=== PATIENT | female | born 1960 | race Caucasian/White ===

== ENCOUNTER 2017-06-24 18:00 | Emergency (ER) | payer OTHER ==
[~2017-06-24] VITALS: Ht 167.6 cm; Wt 99.4 kg
[~2017-06-24 18:00] MED LIST: ADVAIR 250/501 DISK IH; ALEVE220 MG PO; ASPIR-LOW81 MG PO; ATORVASTATIN CA80 MG PO; AUGMENTIN875 MG PO; Aspirin E.C. PO; CEFTIN500 MG PO; CLOPIDOGREL75 MG PO; COUMADIN3 MG PO; CYANOCOBALAM1000 MCG PO; DELTASONE20 M1 PO; DILANTIN100 MG PO; DUONEB 2.5-0.5 M3 ML IH; Dilantin PO; FLOVENT DISKUS1 DISK IH; GLIPIZIDE5 MG PO; GLUCOTROL XL5 MG PO; GLUCOTROL5 MG PO; Glucotrol PO; Habitrol,Nicoderm CQ TD; JANUVIA100 MG PO; KEFLEX500 MG PO; KEPPRA250 MG PO; KEPPRA500 MG PO; LACTINEX PACKE1 EACH PO; LEVAQUIN750 MG PO; LIDODERM 5% P1 PATCH TD; LOPRESSOR25 MG PO; LOVENOX100 MG/1 M SC; Levaquin PO; NICOTINE PATCH1 EAC1 TD; NORCO 5/3251 TABLET PO; NOVOLOG PE100 UNITS/ SC; PANTOPRAZOLE SO40 MG PO; PATADAY2.5 ML BOTH EYES; PERCOCET 5/31 TABLET PO; PHENOBARBITAL60 MG PO; PHENOBARBITAL64.8 MG PO; PHENYTOIN SODI100 M1 PO; PHENobarbital PO; PLAVIX75 MG PO; PRAVASTATIN SOD40 MG PO; PREDNISONE10 MG PO; PROVENTIL,2.5 MG/3 M IH; ROXICODONE5 MG PO; Roxicet,Percocet 5/3 PO; SPIRIVA1 INHALATI IH; VENTOLIN HFA18 GM IH; VIMPAT100 MG PO; ZESTORETIC 10-1 EAC1 PO; [UNRECOGNIZED DRUG - OTHER] IH; predniSONE PO
[2017-06-24 21:02] VITALS: BP 122/76
== END 2017-06-24 21:12 | disposition home or self-care (01) ==
LOC: EME 18:00
DX: S99.922A Unspecified injury of left foot, initial encounter (principal); M79.672 Pain in left foot; W18.40XA Slipping, tripping and stumbling without falling, unspecified, initial encounter; M85.80 Other specified disorders of bone density and structure, unspecified site; J44.9 Chronic obstructive pulmonary disease, unspecified; K21.9 Gastro-esophageal reflux disease without esophagitis; I10 Essential (primary) hypertension; E11.9 Type 2 diabetes mellitus without complications; R56.9 Unspecified convulsions; F32.9 Major depressive disorder, single episode, unspecified; Z87.891 Personal history of nicotine dependence; Z86.73 Personal history of transient ischemic attack (TIA), and cerebral infarction without residual deficits; Z79.84 Long term (current) use of oral hypoglycemic drugs; Z88.6 Allergy status to analgesic agent
CPT/HCPCS: 73630; 99281; 99284

== ENCOUNTER 2017-08-25 23:12 | Inpatient (IN) | payer OTHER ==
[~2017-08-25] VITALS: Ht 165.1 cm; Wt 94.4 kg
[~2017-08-25 23:12] MED LIST changes: -JANUVIA100 MG PO; -PHENYTOIN SODI100 M1 PO; -PLAVIX75 MG PO
[2017-08-25 23:42] LABS: BASOPHIL (%) 0.3 % (0-1); BASOPHIL COUNT 0.1 K/uL (0-0.1); EOSINOPHIL (%) 0 % (0-5); HEMATOCRIT 44.1 % (36.0-46.0); HEMOGLOBIN 14.4 G/DL (11.9-15.5); IMMATURE GRANULOCYTE (%) 0.5 % (0.0-0.7); LYMPHOCYTE (%) 6.7 % (15-42); LYMPHOCYTE COUNT 1.4 K/uL (1.0-2.8); MCH 29.7 PG (29.0-34.0); MCHC 32.7 G/DL (30.0-36.0); MCV 90.9 FL (83-99); MONOCYTE (%) 3.1 % (3-12); MONOCYTE COUNT 0.7 K/uL (0-0.8); NEUTROPHIL (%) 89.4 % (45-76); PLATELET COUNT 382 K/uL (156-360); RBC DIS.WIDTH-CV 13.1 % (11.8-14.6); RBC DIS.WIDTH-SD 43.2 % (39-53); RED BLOOD COUNT 4.85 M/uL (3.80-5.20); WHITE BLOOD COUNT 21.2 K/uL (4.1-10.2)
[2017-08-25 23:50] LABS: AMYLASE 41 IU/L (1-118); CHLORIDE 97 mEq/L (99-109); SODIUM 137 mEq/L (136-147)
[2017-08-25 23:52] LABS: GLUCOSE 247 mg/dL (70-99)
[2017-08-25 23:55] LABS: SERUM ETHYL ALCOHOL < 10 mg/dL
[2017-08-25 23:56] LABS: CREATININE 0.7 mg/dL (0.6-1.3); GFR ESTIMATE (CALCULATED) > 59 mL/min/
[2017-08-25 23:57] LABS: UREA NITROGEN (BUN) 9 mg/dL (9-23)
[2017-08-25 23:59] LABS: INTER. NORMALIZED RATIO 1.1; LIPASE 20 U/L (1.0-51.0)
[2017-08-26] VITALS (27 sets, daily range): BP systolic 125–164; BP diastolic 52–91
[2017-08-26 00:01] LABS: PTT 26.7 SEC (25-37)
[2017-08-26 00:04] LABS: TROP-I INTERPRETATION NEGATIVE; TROPONIN-I < 0.01 ng/mL (0.0-0.30)
[2017-08-26 00:04] LABS: BASE EXCESS 1.6 mEq/L (-3 to +3); BICARBONATE 30.1 mEq/L (22-26); CARBOXY HGB 1.1 % (0-5); METHEMOGLOBIN 1.5 % (0-1.5); PO2 331 mm Hg (80-100)
[2017-08-26 00:05] LABS: COMMENTS - BLOOD GASES C+; DEVICE VENT; FI02 100 %; MECHANICAL RATE 14 resp/min; MODE AC; PCO2 64 mm Hg (35-45); PEEP 5 CM/H20; SITE LR; TIDAL VOLUME 400 ML; TOTAL RESP RATE 14 resp/min; pH 7.28 (7.35-7.45)
[2017-08-26 00:31] LABS: APPEARANCE CLEAR ((CLEAR)); BILIRUBIN NEGATIVE; BLOOD SMALL; COLOR YELLOW ((YELLOW)); GLUCOSE (STRIP) >=500; KETONES 5; LEUKOCYTES NEGATIVE; NITRITE NEGATIVE; PROTEIN (STRIP) >=500; SPECIFIC GRAVITY 1.016 (1.000-1.030); UROBILINOGEN 0.2 MG/DL (0.2-1.0)
[2017-08-26 00:40] LABS: AMPHETAMINE NEGATIVE (500 ng/mL); BARBITURATES PRESUMPTIVE POSITIVE (200 ng/mL); BENZODIAZEPINES NEGATIVE (150 ng/mL); BUPRENORPHINE NEGATIVE (10 ng/mL); COCAINE NEGATIVE (150 ng/mL); METHADONE NEGATIVE (200 ng/mL); METHAMPHETAMINE NEGATIVE (500 ng/mL); OPIATES (MORPHINE) NEGATIVE (100 ng/mL); OXYCODONE NEGATIVE (100 ng/mL); PHENCYCLIDINE NEGATIVE (25 ng/mL); PROPOXYPHENE NEGATIVE (300 ng/mL); THC CANNABINOIDS NEGATIVE (50 ng/mL); TRICYCLIC ANTIDEPRESSANTS NEGATIVE (300 ng/mL)
[2017-08-26 00:42] LABS: BACTERIA NONE SEEN /HPF; EPITHELIAL CELLS NONE SEEN /HPF; MUCUS TRACE /LPF; RED BLOOD CELLS 0-5 /HPF (0-5); UCUL ADDED? NO; WHITE BLOOD CELLS 0-5 /HPF (0-5)
[2017-08-26 01:09] LABS: PHENOBARBITAL 19.7 MCG/ML (15-40)
[2017-08-26 02:13] LABS: CREATINE KINASE 130 IU/L (1-294); TRIGLYCERIDES 165 MG/DL (Normal: <150)
[2017-08-26 02:46] LABS: PCO2 49 mm Hg (35-45); PO2 74 mm Hg (80-100); pH 7.41 (7.35-7.45)
[2017-08-26 02:47] LABS: BASE EXCESS 5.3 mEq/L (-3 to +3); BICARBONATE 31.1 mEq/L (22-26); CARBOXY HGB 1.3 % (0-5); COMMENTS - BLOOD GASES C+A+; DEVICE VENTILATOR; FI02 60 %; MECHANICAL RATE 16 resp/min; METHEMOGLOBIN 1.6 % (0-1.5); MODE AC; PEEP 5 CM/H20; SITE LR; TIDAL VOLUME 400 ML; TOTAL RESP RATE 16 resp/min
[2017-08-26] MEDS ORDERED: DILANTIN100 MG PO ×2 (03:35→03:50)
[2017-08-26] MEDS ORDERED: PHENOBARBITAL64.8 MG PO (03:41)
[2017-08-26] MEDS ORDERED: KEPPRA500 MG PO (03:41)
[2017-08-26] MEDS ORDERED: JANUVIA100 MG PO (03:50)
[2017-08-26] MEDS ORDERED: PLAVIX75 MG PO (03:51)
[2017-08-26] MEDS ORDERED: PHENYTOIN SODI100 M1 PO (03:52)
[2017-08-26 09:50] LABS: SITE LR
[2017-08-26 09:51] LABS: COMMENTS - BLOOD GASES A+C+; DEVICE 980; FI02 60 %; MECHANICAL RATE 20 resp/min; MODE AC; PCO2 44 mm Hg (35-45); PEEP 5 CM/H20; PO2 86 mm Hg (80-100); TIDAL VOLUME 400 ML; TOTAL RESP RATE 20 resp/min; pH 7.42 (7.35-7.45)
[2017-08-26 09:52] LABS: BASE EXCESS 3.5 mEq/L (-3 to +3); BICARBONATE 28.5 mEq/L (22-26); CARBOXY HGB 1.3 % (0-5); METHEMOGLOBIN 1.2 % (0-1.5)
[2017-08-26 10:09] LABS: HEMOGLOBIN A1c (GLYCOHEMOGLOB) 8.2 % (Below 5.7)
[2017-08-26 10:49] LABS: COMMENTS - BLOOD GASES A+C+; DEVICE 980; FI02 60 %; MECHANICAL RATE 8 resp/min; MODE A/C; SITE LR; TOTAL RESP RATE 19 resp/min
[2017-08-26 10:50] LABS: BASE EXCESS 3.5 mEq/L (-3 to +3); BICARBONATE 29.1 mEq/L (22-26); CARBOXY HGB 1.3 % (0-5); METHEMOGLOBIN 1.5 % (0-1.5); PCO2 47 mm Hg (35-45); PEEP 5 CM/H20; PO2 110 mm Hg (80-100); TIDAL VOLUME 400 ML
[2017-08-27] VITALS (25 sets, daily range): BP systolic 121–161; BP diastolic 52–708
[2017-08-27 05:52] LABS: HEMATOCRIT 38.2 % (36.0-46.0); MCH 28.2 PG (29.0-34.0); MCHC 30.9 G/DL (30.0-36.0); MCV 91.4 FL (83-99); PLATELET COUNT 284 K/uL (156-360); RBC DIS.WIDTH-CV 13.2 % (11.8-14.6); RBC DIS.WIDTH-SD 44.3 % (39-53); RED BLOOD COUNT 4.18 M/uL (3.80-5.20); WHITE BLOOD COUNT 13.5 K/uL (4.1-10.2)
[2017-08-27 05:54] LABS: HEMOGLOBIN 11.8 G/DL (11.9-15.5)
[2017-08-27 06:14] LABS: CHLORIDE 104 MEQ/L (99-109); CREATININE 0.4 MG/DL (0.6-1.3); GFR ESTIMATE (CALCULATED) > 59 mL/min/; GLUCOSE 132 mg/dL (70-99); POTASSIUM 4.1 MEQ/L (3.7-5.4); SODIUM 141 MEQ/L (136-147); UREA NITROGEN (BUN) 7 mg/dL (9-23)
[2017-08-27 15:41] LABS: COMMENTS - BLOOD GASES A+C+; DEVICE VENT; FI02 40 %; MECHANICAL RATE 10 resp/min; MODE SIMV; PEEP 5 CM/H20; PRES. SUPPORT 10 CM/H2O; SITE LEFT RADIAL; TIDAL VOLUME 400 ML; TOTAL RESP RATE 34 resp/min
[2017-08-27 15:42] LABS: BASE EXCESS 4.9 mEq/L (-3 to +3); BICARBONATE 30.9 mEq/L (22-26); CARBOXY HGB 1.7 % (0-5); METHEMOGLOBIN 1.4 % (0-1.5); PCO2 51 mm Hg (35-45); PO2 46 mm Hg (80-100); pH 7.39 (7.35-7.45)
[2017-08-27 16:32] LABS: COMMENTS - BLOOD GASES A+C+; DEVICE VENT; FI02 60 %; MECHANICAL RATE 10 resp/min; MODE SIMV; SITE LEFT RADIAL; TIDAL VOLUME 700 ML; TOTAL RESP RATE 10 resp/min
[2017-08-27 16:33] LABS: BASE EXCESS 5.7 mEq/L (-3 to +3); BICARBONATE 30.6 mEq/L (22-26); CARBOXY HGB 1.9 % (0-5); PCO2 45 mm Hg (35-45); PEEP 7 CM/H20; PO2 63 mm Hg (80-100); PRES. SUPPORT 10 CM/H2O; pH 7.44 (7.35-7.45)
[2017-08-27 17:14] LABS: COMMENTS - BLOOD GASES A+C+; DEVICE VENT; FI02 60 %; MECHANICAL RATE 10 resp/min; MODE SIMV; PRES. SUPPORT 7 CM/H2O; SITE LEFT RADIAL; TIDAL VOLUME 700 ML; TOTAL RESP RATE 10 resp/min
[2017-08-27 17:15] LABS: BASE EXCESS 4.7 mEq/L (-3 to +3); BICARBONATE 29.2 mEq/L (22-26); CARBOXY HGB 1.8 % (0-5); METHEMOGLOBIN 1.1 % (0-1.5); PCO2 42 mm Hg (35-45); PO2 83 mm Hg (80-100); pH 7.45 (7.35-7.45)
[2017-08-27 17:19] LABS: PEEP 12 CM/H20
[2017-08-27 17:29] LABS: INTER. NORMALIZED RATIO 1.2
[2017-08-27 17:32] LABS: PTT 23.5 SEC (25-37)
[2017-08-27 17:37] LABS: ALBUMIN 3.1 G/DL (3.2-4.8); ALKALINE PHOSPHATASE 78 IU/L (3-129); ALT (GPT) 19 IU/L (3-49); AST (GOT) 19 IU/L (2-34); CHLORIDE 101 MEQ/L (99-109); CREATININE 0.3 MG/DL (0.6-1.3); GFR ESTIMATE (CALCULATED) > 59 mL/min/; GLUCOSE 150 mg/dL (70-99); POTASSIUM 3.9 MEQ/L (3.7-5.4); SODIUM 136 MEQ/L (136-147); TOTAL BILIRUBIN 0.4 MG/DL (0.0-1.0); TOTAL PROTEIN 6.4 G/DL (6.4-8.3); UREA NITROGEN (BUN) 5 mg/dL (9-23)
[2017-08-28] VITALS (23 sets, daily range): BP systolic 111–184; BP diastolic 60–96
[2017-08-28 05:33] LABS: BASOPHIL (%) 0.3 % (0-1); EOSINOPHIL (%) 0.3 % (0-5); HEMATOCRIT 35.9 % (36.0-46.0); HEMOGLOBIN 11.5 G/DL (11.9-15.5); IMMATURE GRANULOCYTE (%) 0.4 % (0.0-0.7); LYMPHOCYTE COUNT 1.9 K/uL (1.0-2.8); MCV 90.4 FL (83-99); MONOCYTE (%) 8.2 % (3-12); MONOCYTE COUNT 1.1 K/uL (0-0.8); NEUTROPHIL (%) 76.8 % (45-76); NEUTROPHIL COUNT 10.6 K/uL (1.8-6.4); PLATELET COUNT 273 K/uL (156-360); RBC DIS.WIDTH-CV 13.2 % (11.8-14.6); RBC DIS.WIDTH-SD 43.8 % (39-53); RED BLOOD COUNT 3.97 M/uL (3.80-5.20); WHITE BLOOD COUNT 13.8 K/uL (4.1-10.2)
[2017-08-28 06:17] LABS: CHLORIDE 101 MEQ/L (99-109); CREATININE 0.4 MG/DL (0.6-1.3); GFR ESTIMATE (CALCULATED) > 59 mL/min/; GLUCOSE 154 mg/dL (70-99); POTASSIUM 4.1 MEQ/L (3.7-5.4); SODIUM 137 MEQ/L (136-147); UREA NITROGEN (BUN) 8 mg/dL (9-23)
[2017-08-28 10:18] LABS: COMMENTS - BLOOD GASES A+C+; DEVICE VENT; FI02 60 %; MECHANICAL RATE 12 resp/min; MODE AC; PCO2 34 mm Hg (35-45); PEEP 8 CM/H20; PO2 144 mm Hg (80-100); SITE LEFT RAD; TIDAL VOLUME 700 ML; TOTAL RESP RATE 12 resp/min
[2017-08-28 10:19] LABS: BASE EXCESS 3.4 mEq/L (-3 to +3); BICARBONATE 26.5 mEq/L (22-26); CARBOXY HGB 1.4 % (0-5); METHEMOGLOBIN 1.4 % (0-1.5)
[2017-08-28 11:23] LABS: COMMENTS - BLOOD GASES A+C+; DEVICE VENT; FI02 60 %; MECHANICAL RATE 4 resp/min; MODE AC; SITE LEFT RADIAL; TIDAL VOLUME 700 ML; TOTAL RESP RATE 9 resp/min
[2017-08-28 11:24] LABS: BASE EXCESS 2.8 mEq/L (-3 to +3); BICARBONATE 27.9 mEq/L (22-26); CARBOXY HGB 1.4 % (0-5); METHEMOGLOBIN 1.2 % (0-1.5); PCO2 44 mm Hg (35-45); PEEP 8 CM/H20; PO2 99 mm Hg (80-100); pH 7.41 (7.35-7.45)
[2017-08-28 13:52] LABS: COMMENTS - BLOOD GASES A+C+; DEVICE VENT; SITE LEFT RADIAL
[2017-08-28 13:53] LABS: CARBOXY HGB 1.3 % (0-5); FI02 60 %; MECHANICAL RATE 4 resp/min; METHEMOGLOBIN 1.2 % (0-1.5); MODE AC; PCO2 44 mm Hg (35-45); PEEP 8 CM/H20; PO2 160 mm Hg (80-100); TIDAL VOLUME 700 ML; TOTAL RESP RATE 9 resp/min; pH 7.41 (7.35-7.45)
[2017-08-28 13:54] LABS: BASE EXCESS 2.8 mEq/L (-3 to +3); BICARBONATE 27.9 mEq/L (22-26)
[2017-08-29] VITALS (62 sets, daily range): BP systolic 104–156; BP diastolic 57–97
[2017-08-29 05:07] LABS: BASOPHIL (%) 0.4 % (0-1); BASOPHIL COUNT 0.1 K/uL (0-0.1); EOSINOPHIL (%) 0.2 % (0-5); HEMATOCRIT 36.7 % (36.0-46.0); HEMOGLOBIN 11.8 G/DL (11.9-15.5); IMMATURE GRANULOCYTE (%) 0.7 % (0.0-0.7); LYMPHOCYTE (%) 10.6 % (15-42); LYMPHOCYTE COUNT 1.6 K/uL (1.0-2.8); MCH 28.6 PG (29.0-34.0); MCHC 32.2 G/DL (30.0-36.0); MCV 88.9 FL (83-99); MONOCYTE (%) 8.1 % (3-12); MONOCYTE COUNT 1.2 K/uL (0-0.8); PLATELET COUNT 287 K/uL (156-360); RBC DIS.WIDTH-CV 13.2 % (11.8-14.6); RBC DIS.WIDTH-SD 42.5 % (39-53); RED BLOOD COUNT 4.13 M/uL (3.80-5.20)
[2017-08-29 05:35] LABS: ALBUMIN 3.3 G/DL (3.2-4.8); ALT (GPT) 15 IU/L (3-49); AST (GOT) 15 IU/L (2-34); CHLORIDE 96 MEQ/L (99-109); CREATININE 0.3 MG/DL (0.6-1.3); DIRECT BILIRUBIN 0.3 mg/dL (0.0-0.3); GFR ESTIMATE (CALCULATED) > 59 mL/min/; GLUCOSE 177 mg/dL (70-99); POTASSIUM 4.2 MEQ/L (3.7-5.4); SODIUM 133 MEQ/L (136-147); TOTAL PROTEIN 6.5 G/DL (6.4-8.3); UREA NITROGEN (BUN) 7 mg/dL (9-23)
[2017-08-29 05:36] LABS: ALKALINE PHOSPHATASE 101 IU/L (3-129); TOTAL BILIRUBIN 0.5 MG/DL (0.0-1.0)
[2017-08-30] VITALS (21 sets, daily range): BP systolic 121–159; BP diastolic 55–95
[2017-08-30 04:50] LABS: CHLORIDE 100 mEq/L (99-109); POTASSIUM 4.2 mEq/L (3.7-5.4); SODIUM 135 mEq/L (136-147)
[2017-08-30 04:52] LABS: GLUCOSE 165 mg/dL (70-99)
[2017-08-30 04:54] LABS: BASOPHIL (%) 0.3 % (0-1); BASOPHIL COUNT 0.1 K/uL (0-0.1); EOSINOPHIL (%) 0.5 % (0-5); EOSINOPHIL COUNT 0.1 K/uL (0-0.3); HEMATOCRIT 34.9 % (36.0-46.0); HEMOGLOBIN 11.6 G/DL (11.9-15.5); IMMATURE GRANULOCYTE (%) 0.5 % (0.0-0.7); LYMPHOCYTE COUNT 1.5 K/uL (1.0-2.8); MCH 29.6 PG (29.0-34.0); MCHC 33.2 G/DL (30.0-36.0); MONOCYTE (%) 10.1 % (3-12); MONOCYTE COUNT 1.7 K/uL (0-0.8); NEUTROPHIL (%) 79.6 % (45-76); NEUTROPHIL COUNT 13.2 K/uL (1.8-6.4); PLATELET COUNT 313 K/uL (156-360); RBC DIS.WIDTH-CV 13.2 % (11.8-14.6); RED BLOOD COUNT 3.92 M/uL (3.80-5.20); WHITE BLOOD COUNT 16.5 K/uL (4.1-10.2)
[2017-08-30 04:56] LABS: CREATININE 0.5 mg/dL (0.6-1.3); GFR ESTIMATE (CALCULATED) > 59 mL/min/
[2017-08-30 04:57] LABS: UREA NITROGEN (BUN) 8 mg/dL (9-23)
[2017-08-30 04:58] LABS: CREATINE KINASE 151 IU/L (1-294)
[2017-08-31] VITALS (24 sets, daily range): BP systolic 112–161; BP diastolic 69–109
[2017-08-31 06:14] LABS: BASOPHIL (%) 0.4 % (0-1); BASOPHIL COUNT 0.1 K/uL (0-0.1); EOSINOPHIL (%) 1.4 % (0-5); EOSINOPHIL COUNT 0.3 K/uL (0-0.3); HEMATOCRIT 37.9 % (36.0-46.0); HEMOGLOBIN 12.1 G/DL (11.9-15.5); IMMATURE GRANULOCYTE (%) 0.6 % (0.0-0.7); LYMPHOCYTE (%) 10.7 % (15-42); LYMPHOCYTE COUNT 1.9 K/uL (1.0-2.8); MCH 28.5 PG (29.0-34.0); MCHC 31.9 G/DL (30.0-36.0); MCV 89.2 FL (83-99); MONOCYTE (%) 8.5 % (3-12); MONOCYTE COUNT 1.5 K/uL (0-0.8); NEUTROPHIL (%) 78.4 % (45-76); NEUTROPHIL COUNT 14.1 K/uL (1.8-6.4); PLATELET COUNT 360 K/uL (156-360); RBC DIS.WIDTH-CV 13.2 % (11.8-14.6); RED BLOOD COUNT 4.25 M/uL (3.80-5.20)
[2017-08-31 06:42] LABS: ALKALINE PHOSPHATASE 89 IU/L (3-129); ALT (GPT) 16 IU/L (3-49); CHLORIDE 96 MEQ/L (99-109); CREATININE 0.3 MG/DL (0.6-1.3); DIRECT BILIRUBIN 0.2 mg/dL (0.0-0.3); GFR ESTIMATE (CALCULATED) > 59 mL/min/; GLUCOSE 151 mg/dL (70-99); POTASSIUM 4.2 MEQ/L (3.7-5.4); SODIUM 135 MEQ/L (136-147); TOTAL BILIRUBIN 0.5 MG/DL (0.0-1.0); TOTAL PROTEIN 6.4 G/DL (6.4-8.3); UREA NITROGEN (BUN) 9 mg/dL (9-23)
[2017-08-31 06:45] LABS: AST (GOT) 24 IU/L (2-34)
[2017-09-01] VITALS (24 sets, daily range): BP systolic 116–164; BP diastolic 54–111
[2017-09-01 05:32] LABS: BASOPHIL (%) 0.4 % (0-1); BASOPHIL COUNT 0.1 K/uL (0-0.1); EOSINOPHIL (%) 2.6 % (0-5); EOSINOPHIL COUNT 0.4 K/uL (0-0.3); HEMATOCRIT 35.6 % (36.0-46.0); HEMOGLOBIN 11.5 G/DL (11.9-15.5); IMMATURE GRANULOCYTE (%) 0.6 % (0.0-0.7); LYMPHOCYTE (%) 11.2 % (15-42); LYMPHOCYTE COUNT 1.8 K/uL (1.0-2.8); MCH 28.8 PG (29.0-34.0); MCHC 32.3 G/DL (30.0-36.0); MCV 89.2 FL (83-99); MONOCYTE (%) 9.5 % (3-12); MONOCYTE COUNT 1.6 K/uL (0-0.8); NEUTROPHIL (%) 75.7 % (45-76); NEUTROPHIL COUNT 12.5 K/uL (1.8-6.4); PLATELET COUNT 372 K/uL (156-360); RBC DIS.WIDTH-CV 13.1 % (11.8-14.6); RBC DIS.WIDTH-SD 43.2 % (39-53); RED BLOOD COUNT 3.99 M/uL (3.80-5.20); WHITE BLOOD COUNT 16.5 K/uL (4.1-10.2)
[2017-09-01 06:16] LABS: CHLORIDE 96 MEQ/L (99-109); CREATINE KINASE 66 IU/L (1-294); CREATININE 0.3 MG/DL (0.6-1.3); GFR ESTIMATE (CALCULATED) > 59 mL/min/; GLUCOSE 139 mg/dL (70-99); POTASSIUM 3.7 MEQ/L (3.7-5.4); SODIUM 137 MEQ/L (136-147); UREA NITROGEN (BUN) 8 mg/dL (9-23)
[2017-09-02] VITALS (22 sets, daily range): BP systolic 115–155; BP diastolic 71–96
[2017-09-02 00:36] LABS: PCO2 45 mm Hg (35-45); PO2 96 mm Hg (80-100); pH 7.42 (7.35-7.45)
[2017-09-02 00:37] LABS: BASE EXCESS 4.1 mEq/L (-3 to +3); BICARBONATE 29.2 mEq/L (22-26); CARBOXY HGB 1.7 % (0-5); DEVICE 980; FI02 50 %; MECHANICAL RATE 4 resp/min; METHEMOGLOBIN 1.1 % (0-1.5); MODE AC; PEEP 8 CM/H20; SITE LR; TIDAL VOLUME 700 ML; TOTAL RESP RATE 9 resp/min
[2017-09-02 00:52] LABS: BASOPHIL (%) 0.4 % (0-1); BASOPHIL COUNT 0.1 K/uL (0-0.1); EOSINOPHIL (%) 2.6 % (0-5); EOSINOPHIL COUNT 0.4 K/uL (0-0.3); HEMATOCRIT 34.9 % (36.0-46.0); HEMOGLOBIN 11.4 G/DL (11.9-15.5); IMMATURE GRANULOCYTE (%) 0.8 % (0.0-0.7); LYMPHOCYTE (%) 12.7 % (15-42); MCH 29.2 PG (29.0-34.0); MCHC 32.7 G/DL (30.0-36.0); MCV 89.5 FL (83-99); MONOCYTE COUNT 1.3 K/uL (0-0.8); NEUTROPHIL (%) 75.5 % (45-76); PLATELET COUNT 376 K/uL (156-360); RBC DIS.WIDTH-CV 13.2 % (11.8-14.6); RBC DIS.WIDTH-SD 43.3 % (39-53); WHITE BLOOD COUNT 15.9 K/uL (4.1-10.2)
[2017-09-02 01:00] LABS: INTER. NORMALIZED RATIO 1.6
[2017-09-02 01:02] LABS: APPEARANCE CLEAR ((CLEAR)); BILIRUBIN NEGATIVE; BLOOD SMALL; COLOR YELLOW ((YELLOW)); GLUCOSE (STRIP) NEGATIVE; KETONES 80; LEUKOCYTES NEGATIVE; NITRITE NEGATIVE; PROTEIN (STRIP) 30; SPECIFIC GRAVITY 1.018 (1.000-1.030); UROBILINOGEN 0.2 MG/DL (0.2-1.0)
[2017-09-02 01:03] LABS: PTT 24.8 SEC (25-37)
[2017-09-02 01:17] LABS: CHLORIDE 100 mEq/L (99-109); POTASSIUM 3.2 mEq/L (3.7-5.4); SODIUM 139 mEq/L (136-147)
[2017-09-02 01:18] LABS: MAGNESIUM 1.3 mg/dL (1.3-2.7)
[2017-09-02 01:20] LABS: GLUCOSE 136 mg/dL (70-99); TOTAL PROTEIN 6.7 g/dL (6.4-8.3)
[2017-09-02 01:22] LABS: TOTAL BILIRUBIN 0.3 mg/dL (0.0-1.0)
[2017-09-02 01:23] LABS: ALKALINE PHOSPHATASE 105 IU/L (3-129); PHOSPHORUS 2.6 mg/dL (2.5-4.9)
[2017-09-02 01:24] LABS: CREATININE 0.5 mg/dL (0.6-1.3); GFR ESTIMATE (CALCULATED) > 59 mL/min/
[2017-09-02 01:25] LABS: AST (GOT) 26 IU/L (2-34); DIRECT BILIRUBIN 0.2 mg/dL (0.0-0.3); UREA NITROGEN (BUN) 9 mg/dL (9-23)
[2017-09-02 01:27] LABS: ALT (GPT) 19 IU/L (3-49)
[2017-09-02 03:16] LABS: BACTERIA NONE SEEN /HPF; EPITHELIAL CELLS NONE SEEN /HPF; MUCUS NONE SEEN /LPF; RED BLOOD CELLS 0-5 /HPF (0-5); WHITE BLOOD CELLS NONE SEEN /HPF (0-5)
[2017-09-02 06:07] LABS: PCO2 47 mm Hg (35-45); PO2 101 mm Hg (80-100); pH 7.41 (7.35-7.45)
[2017-09-02 06:08] LABS: BASE EXCESS 4.4 mEq/L (-3 to +3); BICARBONATE 29.8 mEq/L (22-26); CARBOXY HGB 1.5 % (0-5); DEVICE 840; FI02 50 %; MECHANICAL RATE 4 resp/min; METHEMOGLOBIN 1.1 % (0-1.5); MODE AC; PEEP 8 CM/H20; SITE LR; TIDAL VOLUME 700 ML; TOTAL RESP RATE 8 resp/min
[2017-09-02 06:30] LABS: BASOPHIL (%) 0.5 % (0-1); BASOPHIL COUNT 0.1 K/uL (0-0.1); EOSINOPHIL COUNT 0.4 K/uL (0-0.3); HEMATOCRIT 34.7 % (36.0-46.0); HEMOGLOBIN 10.9 G/DL (11.9-15.5); IMMATURE GRANULOCYTE (%) 0.8 % (0.0-0.7); LYMPHOCYTE (%) 11.2 % (15-42); LYMPHOCYTE COUNT 1.6 K/uL (1.0-2.8); MCH 28.3 PG (29.0-34.0); MCHC 31.4 G/DL (30.0-36.0); MCV 90.1 FL (83-99); MONOCYTE (%) 8.8 % (3-12); MONOCYTE COUNT 1.2 K/uL (0-0.8); NEUTROPHIL (%) 75.7 % (45-76); NEUTROPHIL COUNT 10.4 K/uL (1.8-6.4); RBC DIS.WIDTH-CV 13.2 % (11.8-14.6); RBC DIS.WIDTH-SD 43.5 % (39-53); RED BLOOD COUNT 3.85 M/uL (3.80-5.20); WHITE BLOOD COUNT 13.8 K/uL (4.1-10.2)
[2017-09-02 06:38] LABS: INTER. NORMALIZED RATIO 1.6
[2017-09-02 06:47] LABS: PTT 20.4 SEC (25-37)
[2017-09-02 07:09] LABS: ALBUMIN 2.6 G/DL (3.2-4.8); ALKALINE PHOSPHATASE 89 IU/L (3-129); ALT (GPT) 14 IU/L (3-49); AST (GOT) 22 IU/L (2-34); CHLORIDE 100 MEQ/L (99-109); CREATININE 0.3 MG/DL (0.6-1.3); DIRECT BILIRUBIN 0.1 mg/dL (0.0-0.3); GAMMA-GT 246 IU/L (4-73); GFR ESTIMATE (CALCULATED) > 59 mL/min/; GLUCOSE 123 mg/dL (70-99); MAGNESIUM 1.2 mg/dl (1.3-2.7); PHOSPHORUS 2.7 mg/dL (2.5-4.9); POTASSIUM 3.4 MEQ/L (3.7-5.4); SODIUM 142 MEQ/L (136-147); TOTAL PROTEIN 5.8 G/DL (6.4-8.3); UREA NITROGEN (BUN) 9 mg/dL (9-23)
[2017-09-02 07:12] LABS: TOTAL BILIRUBIN 0.3 MG/DL (0.0-1.0)
[2017-09-02 07:39] LABS: PLAT.SUFFICIENCY INCREASED; PLATELET COUNT 347 K/uL (156-360)
[2017-09-02 09:18] LABS: GAMMA-GT 248 IU/L (4-73)
[2017-09-02 12:07] LABS: BASOPHIL (%) 0.4 % (0-1); BASOPHIL COUNT 0.1 K/uL (0-0.1); EOSINOPHIL (%) 2.6 % (0-5); EOSINOPHIL COUNT 0.4 K/uL (0-0.3); HEMOGLOBIN 10.7 G/DL (11.9-15.5); IMMATURE GRANULOCYTE (%) 0.7 % (0.0-0.7); LYMPHOCYTE (%) 11.9 % (15-42); LYMPHOCYTE COUNT 1.6 K/uL (1.0-2.8); MCH 29.1 PG (29.0-34.0); MCHC 32.4 G/DL (30.0-36.0); MCV 89.7 FL (83-99); MONOCYTE (%) 8.2 % (3-12); MONOCYTE COUNT 1.1 K/uL (0-0.8); NEUTROPHIL (%) 76.2 % (45-76); NEUTROPHIL COUNT 10.2 K/uL (1.8-6.4); PLATELET COUNT 376 K/uL (156-360); RBC DIS.WIDTH-CV 13.3 % (11.8-14.6); RED BLOOD COUNT 3.68 M/uL (3.80-5.20); WHITE BLOOD COUNT 13.4 K/uL (4.1-10.2)
[2017-09-02 12:11] LABS: COMMENTS - BLOOD GASES ALINE; DEVICE VENT; FI02 50 %; MODE ACVC; SITE LR
[2017-09-02 12:12] LABS: MECHANICAL RATE 4 resp/min; TOTAL RESP RATE 8 resp/min
[2017-09-02 12:13] LABS: PCO2 44 mm Hg (35-45); PEEP 8 CM/H20; PO2 117 mm Hg (80-100); TIDAL VOLUME 700 ML; pH 7.42 (7.35-7.45)
[2017-09-02 12:16] LABS: BASE EXCESS 3.5 mEq/L (-3 to +3); BICARBONATE 28.5 mEq/L (22-26); CARBOXY HGB 1.6 % (0-5); METHEMOGLOBIN 1.4 % (0-1.5)
[2017-09-02 12:28] LABS: ALBUMIN 2.6 G/DL (3.2-4.8); ALKALINE PHOSPHATASE 90 IU/L (3-129); ALT (GPT) 16 IU/L (3-49); AST (GOT) 31 IU/L (2-34); CHLORIDE 98 MEQ/L (99-109); CREATININE 0.3 MG/DL (0.6-1.3); GAMMA-GT 239 IU/L (4-73); GFR ESTIMATE (CALCULATED) > 59 mL/min/; GLUCOSE 124 mg/dL (70-99); MAGNESIUM 1.4 mg/dl (1.3-2.7); PHOSPHORUS 3.3 mg/dL (2.5-4.9); POTASSIUM 4.5 MEQ/L (3.7-5.4); SODIUM 139 MEQ/L (136-147); TOTAL BILIRUBIN 0.5 MG/DL (0.0-1.0); UREA NITROGEN (BUN) 9 mg/dL (9-23)
[2017-09-02 13:31] LABS: COMMENTS - BLOOD GASES ALINE; DEVICE VENT; FI02 100 %; MECHANICAL RATE 4 resp/min; MODE AC; PCO2 46 mm Hg (35-45); PEEP 8 CM/H20; PO2 383 mm Hg (80-100); SITE LR; TIDAL VOLUME 700 ML; TOTAL RESP RATE 8 resp/min; pH 7.41 (7.35-7.45)
[2017-09-02 13:32] LABS: BASE EXCESS 3.9 mEq/L (-3 to +3); BICARBONATE 29.2 mEq/L (22-26); CARBOXY HGB 1.2 % (0-5); METHEMOGLOBIN 1.4 % (0-1.5)
[2017-09-02 13:52] LABS: COMMENTS - BLOOD GASES ALINE; DEVICE TPIECE; FI02 100 %; SITE LR; TOTAL RESP RATE 24 resp/min
[2017-09-02 13:53] LABS: BASE EXCESS 2.3 mEq/L (-3 to +3); CARBOXY HGB 1.4 % (0-5); METHEMOGLOBIN 1.2 % (0-1.5); PCO2 61 mm Hg (35-45); PO2 344 mm Hg (80-100)
[2017-09-02 14:32] LABS: INTER. NORMALIZED RATIO 1.6
[2017-09-02 14:35] LABS: PTT 25.5 SEC (25-37)
[2017-09-02 18:40] LABS: ALBUMIN 2.7 G/DL (3.2-4.8); ALKALINE PHOSPHATASE 88 IU/L (3-129); ALT (GPT) 14 IU/L (3-49); AST (GOT) 20 IU/L (2-34); CHLORIDE 98 MEQ/L (99-109); CREATININE 0.3 MG/DL (0.6-1.3); DIRECT BILIRUBIN 0.1 mg/dL (0.0-0.3); GAMMA-GT 227 IU/L (4-73); GFR ESTIMATE (CALCULATED) > 59 mL/min/; GLUCOSE 124 mg/dL (70-99); MAGNESIUM 1.3 mg/dl (1.3-2.7); SODIUM 140 MEQ/L (136-147); TOTAL PROTEIN 6.4 G/DL (6.4-8.3); UREA NITROGEN (BUN) 9 mg/dL (9-23)
[2017-09-02 18:47] LABS: POTASSIUM 3.3 MEQ/L (3.7-5.4); TOTAL BILIRUBIN 0.3 MG/DL (0.0-1.0)
[2017-09-02 18:47] LABS: COMMENTS - BLOOD GASES ALINE; DEVICE VENT; FI02 50 %; MECHANICAL RATE 4 resp/min; MODE AC; PEEP 8 CM/H20; SITE LR; TIDAL VOLUME 700 ML; TOTAL RESP RATE 8 resp/min; pH 7.43 (7.35-7.45)
[2017-09-02 18:48] LABS: BASE EXCESS 3.7 mEq/L (-3 to +3); BICARBONATE 28.5 mEq/L (22-26); CARBOXY HGB 1.3 % (0-5); METHEMOGLOBIN 1.4 % (0-1.5); PCO2 43 mm Hg (35-45); PO2 99 mm Hg (80-100)
[2017-09-02 21:06] LABS: BASOPHIL (%) 0.4 % (0-1); BASOPHIL COUNT 0.1 K/uL (0-0.1); EOSINOPHIL (%) 2.5 % (0-5); EOSINOPHIL COUNT 0.3 K/uL (0-0.3); HEMATOCRIT 33.3 % (36.0-46.0); HEMOGLOBIN 10.6 G/DL (11.9-15.5); IMMATURE GRANULOCYTE (%) 0.9 % (0.0-0.7); LYMPHOCYTE (%) 13.9 % (15-42); LYMPHOCYTE COUNT 1.6 K/uL (1.0-2.8); MCH 28.6 PG (29.0-34.0); MCHC 31.8 G/DL (30.0-36.0); MONOCYTE (%) 8.4 % (3-12); NEUTROPHIL (%) 73.9 % (45-76); NEUTROPHIL COUNT 8.7 K/uL (1.8-6.4); RBC DIS.WIDTH-CV 13.2 % (11.8-14.6); RBC DIS.WIDTH-SD 43.2 % (39-53); WHITE BLOOD COUNT 11.8 K/uL (4.1-10.2)
[2017-09-02 21:22] LABS: PLAT.SUFFICIENCY ADEQUATE
[2017-09-02 21:23] LABS: PLATELET COUNT 289 K/uL (156-360)
[2017-09-03] VITALS (8 sets, daily range): BP systolic 107–140; BP diastolic 37–88
[2017-09-03 00:29] LABS: BASOPHIL (%) 0.6 % (0-1); BASOPHIL COUNT 0.1 K/uL (0-0.1); EOSINOPHIL (%) 2.8 % (0-5); EOSINOPHIL COUNT 0.4 K/uL (0-0.3); HEMATOCRIT 32.7 % (36.0-46.0); HEMOGLOBIN 10.6 G/DL (11.9-15.5); IMMATURE GRANULOCYTE (%) 0.9 % (0.0-0.7); LYMPHOCYTE (%) 13.6 % (15-42); LYMPHOCYTE COUNT 1.8 K/uL (1.0-2.8); MCH 29.3 PG (29.0-34.0); MCHC 32.4 G/DL (30.0-36.0); MCV 90.3 FL (83-99); MONOCYTE (%) 8.4 % (3-12); MONOCYTE COUNT 1.1 K/uL (0-0.8); NEUTROPHIL (%) 73.7 % (45-76); PLATELET COUNT 375 K/uL (156-360); RBC DIS.WIDTH-CV 13.1 % (11.8-14.6); RBC DIS.WIDTH-SD 43.1 % (39-53); RED BLOOD COUNT 3.62 M/uL (3.80-5.20); WHITE BLOOD COUNT 13.6 K/uL (4.1-10.2)
[2017-09-03 00:35] LABS: INTER. NORMALIZED RATIO 1.7
[2017-09-03 00:37] LABS: PTT 23.4 SEC (25-37)
[2017-09-03 00:40] LABS: CHLORIDE 99 mEq/L (99-109); POTASSIUM 3.4 mEq/L (3.7-5.4); SODIUM 140 mEq/L (136-147)
[2017-09-03 00:41] LABS: ALBUMIN 2.9 g/dL (3.2-4.8); MAGNESIUM 1.4 mg/dL (1.3-2.7)
[2017-09-03 00:43] LABS: GLUCOSE 133 mg/dL (70-99); TOTAL PROTEIN 5.9 g/dL (6.4-8.3)
[2017-09-03 00:45] LABS: TOTAL BILIRUBIN 0.3 mg/dL (0.0-1.0)
[2017-09-03 00:46] LABS: PHOSPHORUS 2.9 mg/dL (2.5-4.9)
[2017-09-03 00:47] LABS: ALKALINE PHOSPHATASE 116 IU/L (3-129); CREATININE 0.5 mg/dL (0.6-1.3); GFR ESTIMATE (CALCULATED) > 59 mL/min/
[2017-09-03 00:48] LABS: AST (GOT) 24 IU/L (2-34); DIRECT BILIRUBIN 0.2 mg/dL (0.0-0.3); UREA NITROGEN (BUN) 9 mg/dL (9-23)
[2017-09-03 00:50] LABS: ALT (GPT) 20 IU/L (3-49)
[2017-09-03 01:49] LABS: GAMMA-GT 237 IU/L (4-73)
[2017-09-03 02:56] LABS: PCO2 49 mm Hg (35-45); PO2 99 mm Hg (80-100); pH 7.38 (7.35-7.45)
[2017-09-03 02:57] LABS: BASE EXCESS 3.2 mEq/L (-3 to +3); BICARBONATE 29 mEq/L (22-26); CARBOXY HGB 1.3 % (0-5); COMMENTS - BLOOD GASES C+; DEVICE VENT; FI02 50 %; MECHANICAL RATE 4 resp/min; METHEMOGLOBIN 1.4 % (0-1.5); MODE ACVC; O2 SATURATION (CALCULATED) 98.3 % (95-99); PEEP 8 CM/H20; SITE A-LINE; TIDAL VOLUME 700 ML; TOTAL RESP RATE 8 resp/min
[2017-09-03 03:50] LABS: APPEARANCE CLEAR ((CLEAR)); BILIRUBIN NEGATIVE; BLOOD SMALL; COLOR YELLOW ((YELLOW)); GLUCOSE (STRIP) NEGATIVE; KETONES 80; LEUKOCYTES NEGATIVE; NITRITE NEGATIVE; PROTEIN (STRIP) 100; SPECIFIC GRAVITY 1.023 (1.000-1.030)
[2017-09-03 03:54] LABS: BACTERIA NONE SEEN /HPF; EPITHELIAL CELLS NONE SEEN /HPF; MUCUS TRACE /LPF; RED BLOOD CELLS 20-30 /HPF (0-5); WHITE BLOOD CELLS 0-5 /HPF (0-5)
[2017-09-03 06:26] LABS: BASOPHIL (%) 0.8 % (0-1); BASOPHIL COUNT 0.1 K/uL (0-0.1); EOSINOPHIL COUNT 0.4 K/uL (0-0.3); HEMATOCRIT 31.9 % (36.0-46.0); HEMOGLOBIN 10.3 G/DL (11.9-15.5); LYMPHOCYTE (%) 14.2 % (15-42); LYMPHOCYTE COUNT 1.8 K/uL (1.0-2.8); MCH 28.9 PG (29.0-34.0); MCHC 32.3 G/DL (30.0-36.0); MCV 89.6 FL (83-99); MONOCYTE (%) 8.3 % (3-12); NEUTROPHIL (%) 72.7 % (45-76); NEUTROPHIL COUNT 9.1 K/uL (1.8-6.4); PLATELET COUNT 411 K/uL (156-360); RBC DIS.WIDTH-CV 13.2 % (11.8-14.6); RBC DIS.WIDTH-SD 43.6 % (39-53); RED BLOOD COUNT 3.56 M/uL (3.80-5.20); WHITE BLOOD COUNT 12.5 K/uL (4.1-10.2)
[2017-09-03 06:47] LABS: INTER. NORMALIZED RATIO 1.6
[2017-09-03 06:50] LABS: PTT 24.6 SEC (25-37)
[2017-09-03 06:51] LABS: ALBUMIN 2.7 G/DL (3.2-4.8); ALKALINE PHOSPHATASE 97 IU/L (3-129); ALT (GPT) 14 IU/L (3-49); AST (GOT) 22 IU/L (2-34); CHLORIDE 99 MEQ/L (99-109); CREATININE 0.3 MG/DL (0.6-1.3); DIRECT BILIRUBIN 0.1 mg/dL (0.0-0.3); GAMMA-GT 230 IU/L (4-73); GFR ESTIMATE (CALCULATED) > 59 mL/min/; GLUCOSE 131 mg/dL (70-99); SODIUM 141 MEQ/L (136-147); TOTAL BILIRUBIN 0.3 MG/DL (0.0-1.0); TOTAL PROTEIN 5.8 G/DL (6.4-8.3); UREA NITROGEN (BUN) 9 mg/dL (9-23)
[2017-09-03 06:52] LABS: MAGNESIUM 1.9 mg/dl (1.3-2.7); PHOSPHORUS 4.2 mg/dL (2.5-4.9)
[2017-09-03 10:55] LABS: pH 7.39 (7.35-7.45)
[2017-09-03 10:56] LABS: BASE EXCESS 2.3 mEq/L (-3 to +3); BICARBONATE 27.8 mEq/L (22-26); CARBOXY HGB 1.3 % (0-5); COMMENTS - BLOOD GASES C+; DEVICE 840; FI02 50 %; MECHANICAL RATE 10 resp/min; METHEMOGLOBIN 1.1 % (0-1.5); MODE AC; PCO2 46 mm Hg (35-45); PEEP 8 CM/H20; PO2 103 mm Hg (80-100); SITE ALINE; TIDAL VOLUME 450 ML; TOTAL RESP RATE 15 resp/min
== END 2017-09-05 05:30 | DRG 64 ==
LOC: EME → EDBD 23:12 → 4WEST 08-26 01:16 → EDOF 08-26 01:16 → ENRESERV 08-26 01:24 → 4WEST 08-26 02:23 → ENRESERV 09-03 13:27 → 4WEST 09-03 15:31 → 5EAST 09-03 18:03
PROVIDERS: Emergency Medicine; Internal Medicine Critical Care Medicine; Surgery
PROC: 5A1955Z Respiratory Ventilation, Greater than 96 Consecutive Hours (ICD-10-PCS; principal; 2017-08-26)
DX: I61.3 Nontraumatic intracerebral hemorrhage in brain stem (principal); J96.21 Acute and chronic respiratory failure with hypoxia; J96.22 Acute and chronic respiratory failure with hypercapnia; J69.0 Pneumonitis due to inhalation of food and vomit; G91.1 Obstructive hydrocephalus; E87.3 Alkalosis; J44.9 Chronic obstructive pulmonary disease, unspecified; I11.0 Hypertensive heart disease with heart failure; I50.9 Heart failure, unspecified; Z99.81 Dependence on supplemental oxygen; E87.2 Acidosis; Z79.82 Long term (current) use of aspirin; Z91.19 Patient's noncompliance with other medical treatment and regimen; Z79.02 Long term (current) use of antithrombotics/antiplatelets; G40.909 Epilepsy, unspecified, not intractable, without status epilepticus; I25.10 Atherosclerotic heart disease of native coronary artery without angina pectoris; R40.2432 Glasgow coma scale score 3-8, at arrival to emergency department; E11.9 Type 2 diabetes mellitus without complications; E78.5 Hyperlipidemia, unspecified; G47.33 Obstructive sleep apnea (adult) (pediatric); Z87.891 Personal history of nicotine dependence; Z51.5 Encounter for palliative care; F32.9 Major depressive disorder, single episode, unspecified; R29.6 Repeated falls; K21.9 Gastro-esophageal reflux disease without esophagitis
CPT/HCPCS: 36600; 70450; 71045; 80048; 80053; 80076; 80184; 80185; 81003; 82150; 82248; 82330; 82550; 82803; 82948; 82977; 83036; 83605; 83690; 83735; 83880; 84100; 84478; 84484; 84999; 85025; 85025 91; 85027; 85610; 85730; 86850; 86900; 86901; 87040; 87070; 87077; 87086; 87186; 87205; 87641; 93005; 94002; 94003; 94640; 94640 76; 94760; 99202; 99281; 99285; C1753; C9113; G0480; J0295; J0690; J1165; J1644; J1815; J1940; J1953; J3010; J3475; J3480; J7030; J7040; J7050; S0028